=== PATIENT | male | born 1960 | race Caucasian/White ===

== ENCOUNTER 2016-06-17 08:28 | Emergency (ER) | payer OTHER ==
[~2016-06-17] VITALS: Ht 190.5 cm; Wt 81.6 kg
[2016-06-17 08:41] VITALS: BP 120/74
--- NOTE | 2016-06-17 08:41 | ED NECK/BACK PAIN COMPLAINT ---
History of Present Illness General Chief Complaint: Low Back Pain/Injury Stated Complaint: BACK PAIN TROUBLE WALKING Source: patient Exam Limitations: no limitations Vital Signs & Intake/Output Vital Signs & Intake/Output Vital Signs Date Time Temp Pulse Resp B/P Pulse O2 O2 Flow FiO2 Ox Delivery Rate 06/17 0841 97.1 55 18 120/74 100 Room Air Allergies Coded Allergies: No Known Allergies (06/17/16) Reconcile Medications Cyclobenzaprine HCl 10 MG TABLET 1 TAB PO TID PRN MUSCLE RELAXANT MAY CAUSE DROWSINESS Naproxen (Naprosyn) 500 MG TABLET 1 TAB PO Q12H PRN pain Triage Note: C/O LOW BACK PAIN X 2 DAYS, RADIATING TO R LEG. Triage Nurses Notes Reviewed? yes HPI: Patient is a 55 year old male present complaining of low back pain right greater than left. Mild pain beginning on Thursday. Patient was walking on Thursday when he felt a pull in his low back and pain became worse. Pain is an aching sometimes sharp pain that intermittently radiates down the right lower extremity. Pain is currently 8 out of 10. Pain worsens with movement. Patient has been taking Tylenol with no improvement. Patient denies numbness, weakness, incontinence, fall Past History Travel History Traveled to [place] past 21 day No Medical History Any Pertinent Medical History? none Neurological: NONE EENT: NONE Cardiovascular: NONE Respiratory: NONE Gastrointestinal: NONE Hepatic: NONE Renal: NONE Musculoskeletal: NONE Psychiatric: NONE Endocrine: NONE Surgical History Surgical History: non-contributory Psychosocial History What is your primary language Micronesian Tobacco Use: Never used ETOH Use: denies use Family History Hx Contributory? No Review of Systems Review of Systems Constitutional: Denies: chills, fever. Eyes: Reports: no symptoms. Ears, Nose, Throat, Mouth: Reports: no symptoms. Respiratory: Reports: no symptoms. Cardiovascular: Reports: no symptoms. Gastrointestinal/Abdominal: Denies: abdominal pain. Musculoskeletal: Reports: see HPI. Skin: Reports: no symptoms. Denies: rash. Neurological/Psychological: Denies: numbness, paresthesia. Physical Exam Physical Exam General Appearance: well developed/nourished, alert, awake Head: atraumatic, normal appearance Eyes: Bilateral: normal appearance, PERRL, EOMI. Ears, Nose, Throat, Mouth: hearing grossly normal, moist mucous membrane Neck: normal inspection, supple, full range of motion Respiratory: normal breath sounds, no respiratory distress, lungs clear Cardiovascular: regular rate/rhythm Peripheral Pulses: 2+ radial (R), 2+ radial (L) Gastrointestinal: soft, non-tender, no palpable pulsatile masses Back: normal inspection, normal range of motion, tenderness in the area of the right sacroiliac joint. Extremities: non-tender, normal range of motion Straight Leg Raising: Right: Pain at ____ degrees (30). DTR: Patellar: 2: L4 Right, L4 Left. Neurologic/Psych: no motor/sensory deficits, awake, alert, oriented x 3, normal gait, normal mood/affect Progress Differential Diagnosis: aortic dissection, cauda equina syn, herniated disc, myofascial strain, pyelo/UTI, sciatica, spinal cord inj, T/L spine injury, ureterolithiasis Plan of Care: No red flags on exam or by history. Labs and imaging deferred. Will treat conservatively. Registration to provide patient with information for [facility] for patient to establish a primary care doctor. Departure Departure Time of Disposition: 911 Disposition: HOME OR SELF CARE Condition: Stable Clinical Impression Primary Impression: Sciatica, right side Referrals: PATIENT HAS NO PRIMARY CARE DR Additional Instructions: Follow-up with one of the [facility] primary care providers that was discussed with you by registration. Return to the ER if numbness, weakness, incontinence or worsening of symptoms. Departure Forms: Customer Survey General Discharge Information Prescriptions: Current Visit Scripts Naproxen (Naprosyn) 1 TAB PO Q12H PRN pain #15 TAB Cyclobenzaprine HCl 1 TAB PO TID PRN MUSCLE RELAXANT #20 TAB MAY CAUSE DROWSINESS
[2016-06-17] MEDS ORDERED: NAPROSYN500 M1 PO (09:14)
[2016-06-17] MEDS ORDERED: CYCLOBENZAPRINE10 M1 PO (09:14)
== END 2016-06-17 09:26 ==
LOC: ERH 08:28
DX: M54.41 Lumbago with sciatica, right side (principal)

== ENCOUNTER 2016-08-11 20:40 | Emergency (ER) | payer OTHER ==
[~2016-08-11 20:40] MED LIST: CYCLOBENZAPRINE10 M1 PO; NAPROSYN500 M1 PO
--- NOTE | 2016-08-11 21:18 | ED GENERAL ADULT ---
History of Present Illness General Chief Complaint: Dizziness Stated Complaint: DIZZINESS Source: patient, family Exam Limitations: no limitations Vital Signs & Intake/Output Vital Signs & Intake/Output Vital Signs Date Time Temp Pulse Resp B/P B/P Pulse O2 O2 Flow FiO2 Mean Ox Delivery Rate 08/116 97.0 54 16 130/75 92 Room Air 08/11 2135 97.0 60 20 157/74 96 Room Air 08/11 2122 100 Room Air 08/11 2102 96.9 52 14 141/83 100 ED Intake and Output 08/12 0000 08/11 1200 Intake Total 1000 Output Total Balance 1000 Intake, IV 1000 Patient 150 lb Weight Allergies Coded Allergies: No Known Allergies (06/17/16) Reconcile Medications Meclizine HCl 25 MG TABLET 1 TAB PO Q8P PRN VERTIGO Triage Nurses Notes Reviewed? yes HPI: Patient brought in by his for an acute onset of room spinning dizziness and feeling very unsteady. Slight nausea but no vomiting. Patient denies any chest pain or shortness of breath. Patient denies palpitations. Patient is concerned because he has never felt like this before. Patient denies any tinnitus. Past History Travel History Traveled to [place] past 21 day No Medical History Any Pertinent Medical History? none Neurological: NONE EENT: NONE Cardiovascular: NONE Respiratory: NONE Gastrointestinal: NONE Hepatic: NONE Renal: NONE Musculoskeletal: NONE Psychiatric: NONE Endocrine: NONE Surgical History Surgical History: non-contributory Psychosocial History What is your primary language Macedonian Family History Hx Contributory? No Review of Systems Review of Systems Constitutional: Reports: no symptoms. EENTM: Reports: no symptoms. Respiratory: Reports: no symptoms. Cardiovascular: Reports: no symptoms. GI: Reports: see HPI, nausea. Genitourinary: Reports: no symptoms. Musculoskeletal: Reports: no symptoms. Skin: Reports: no symptoms. Neurological/Psychological: Reports: see HPI. Hematologic/Endocrine: Reports: no symptoms. Immunologic/Allergic: Reports: no symptoms. All Other Systems: Reviewed and Negative Physical Exam Physical Exam General Appearance: well developed/nourished, alert, awake, anxious, moderate distress Head: atraumatic, normal appearance Eyes: Bilateral: PERRL, EOMI, other (NO NYSTAGMUS). Ears, Nose, Throat: normal pharynx, normal ENT inspection, hearing grossly normal Neck: normal inspection, supple, full range of motion Respiratory: normal breath sounds, chest non-tender, no respiratory distress, lungs clear Cardiovascular: regular rate/rhythm, normal peripheral pulses Gastrointestinal: normal bowel sounds, soft, non-tender Back: normal inspection, normal range of motion Extremities: normal inspection, normal capillary refill, normal range of motion, no edema Neurologic/Psych: no motor/sensory deficits, awake, alert, oriented x 3, normal gait, normal mood/affect Skin: intact, normal color, warm/dry Lymphatic: no anterior cervical mary Core Measures ACS in differential dx? No CVA/TIA Diagnosis: No Severe Sepsis Present: No Septic Shock Present: No Progress Differential Diagnoses I considered the following diagnoses in my evaluation of the patient: [Vertigo, OR, electrolyte abnormality, CVA] Plan of Care: Orders Procedure Date/time Status Telemetry/Route Delivery Manager 08/11 2117 Active URINALYSIS 08/11 2117 Complete TROPONIN LEVEL 08/11 2117 Complete COMPREHENSIVE METABOLIC PANEL 08/11 2117 Complete CBC WITHOUT DIFFERENTIAL 08/11 2117 Complete EKG 08/11 2117 Active Laboratory Tests 08/12/16 0052: Urine Color YEL, Urine Clarity CLEAR, Urine pH 6.0, Ur Specific [place] 1.020, Urine Protein NEG, Urine Ketones TRACE H, Urine Nitrite NEG, Urine Bilirubin NEG, Urine Urobilinogen 0.2, Ur Leukocyte Esterase NEG, Ur Microscopic EXAM NOT REQUIRED, Urine Hemoglobin NEG, Urine Glucose NEG 08/11/16 2150: Anion Gap 13, Estimated GFR > 60, BUN/Creatinine Ratio 13.3, Glucose 139 H, Calcium 9.6, Total Bilirubin 0.5, AST 17, ALT 37, Alkaline Phosphatase 82, Troponin I < 0.01, Total Protein 6.7, Albumin 4.4, Globulin 2.3, Albumin/ Globulin Ratio 1.9, CBC w Diff NO MAN DIFF REQ, RBC 4.49 L, MCV 88.9, MCH 29.2, RDW 13.5, MPV 8.5, Gran % 55.8, Lymphocytes % 34.1, Monocytes % 7.4, Eosinophils % 2.1, Basophils % 0.6, Absolute Granulocytes 3.1, Absolute Lymphocytes 1.9, Absolute Monocytes 0.4, Absolute Eosinophils 0.1, Absolute Basophils 0, PUBS MCHC 32.8 L Initial ED EKG: NSR, no ST T wave changes Prior EKG: unchanged Comments: Patient is feeling much better after Antivert and Zofran and fluids. Departure Departure Disposition: HOME OR SELF CARE Condition: Stable Clinical Impression Primary Impression: Acute epidemic vertigo Referrals: UNKNOWN Additional Instructions: REUTRN IF SYMPTOMS WORSEN OR FOR ANY COCNERNS Departure Forms: Customer Survey General Discharge Information Prescriptions: Current Visit Scripts Meclizine HCl 1 TAB PO Q8P PRN VERTIGO #30 TAB Critical Care Note Critical Care Note Critical Care Time: non-applicable
[2016-08-11 22:00] LABS: ABSOLUTE BASOPHIL COUNT 0 /CUMM (0.0-0.2); ABSOLUTE EOSINOPHIL COUNT 0.1 /CUMM (0.0-0.7); ABSOLUTE GRANULOCYTE CT 3.1 /CUMM (1.4-6.5); ABSOLUTE LYMPH COUNT 1.9 /CUMM (1.2-3.4); ABSOLUTE MONOCYTE COUNT 0.4 /CUMM (0.10-0.60); BASOPHIL % 0.6 % (0.0-2.0); EOSINOPHIL % 2.1 % (0-5); GRANULOCYTE % 55.8 % (42.2-75.2); HEMATOCRIT 39.9 % (42-52); MEAN CORPUSCULAR HGB 29.2 PG (27.0-31.0); MEAN CORPUSCULAR HGB CONC 32.8 G/DL (33.0-37.0); MEAN CORPUSCULAR VOLUME 88.9 FL (80.0-94.0); MEAN PLATELET VOLUME 8.5 FL (7.4-10.4); PLATELET COUNT 230 /CUMM (130-400); RBC DISTRIBUTION WIDTH 13.5 % (11.5-14.5); RED BLOOD CELL CT 4.49 /CUMM (4.70-6.10); WHITE BLOOD CELL COUNT 5.6 /CUMM (4.8-10.8)
[2016-08-11 22:16] VITALS: BP 130/75
[2016-08-12] MEDS ORDERED: MECLIZINE HCL25 MG PO (00:52)
== END 2016-08-12 01:30 ==
LOC: ERH 21:13
PROVIDERS: Emergency Medicine
DX: A88.1 Epidemic vertigo (principal)
CPT/HCPCS: 81003; 93005; 93010; 96374; J2405